=== PATIENT | male | born 1960 | race Caucasian/White ===

== ENCOUNTER 2017-04-11 20:20 | Emergency (ER) | payer SELFPAY ==
--- NOTE | 2017-04-11 20:29 | PDOC ---
History of Present Illness - General History Source: Patient Exam Limitations: No Limitations - History of Present Illness Initial Comments: 04/11/17 20:49 The patient is a 56-year-old male, with a significant past medical history of HTN, testicular cancer, and ITP (last platelet count taken a few months ago and was normal), who presents to the ED with food stuck in his chest. Pt states that he was eating chicken about an hour prior to arrival and it remained stuck in his chest. Pt has had one similar episode in the past and had to be transferred to [facility] to remove the blockage by endoscopy. He states that he believes he has rings and slowed motility. He reports that some secretions can get but when he drinks liquids they just come right up. He has tried vomiting with little relief of his symptoms. The patient denies any shortness of breath or any other symptoms at this time. PAST MEDICAL HISTORY: HTN, testicular cancer, and ITP (last platelet count taken a few months ago and was normal) PAST SURGICAL HISTORY: no significant history FAMILY HISTORY: no pertinent history SOCIAL HISTORY: Pt lives with family and is employed. MEDICATIONS: reviewed ALLERGIES: As per nursing notes General: No fevers or chills, no weakness, no weight loss HEENT: (+)Food stuck in throat. No change in vision. No sore throat,. No ear pain CardioVascular: No chest pain or shortness of breath Respiratory:No cough, or wheezing. Gastrointestinal: (+)vomiting. No nausea, diarrhea or constipation, No rectal bleeding Genitourinary: No dysuria, hematuria, or frequency Musculoskeletal: No joint or muscle pain or swelling Neurologic: No headache, vertigo, dizziness or loss of consciousness Psychiatric: nor depression Skin: No rashes or easy bruising Endocrine: no increased thirst or abnormal weight change Allergic: no skin or latex allergy All other systems reviewed and normal General: Well-nourished well-developed individual, no acute distress HEENT: Throat: Normal, tonsils normal, no erythema or exudate Neck: Supple, no meningeal signs, no lymphadenopathy Eyes::Pupils equal reactive and round, extraocular motion intact Chest: Nontender to palpation Cardiac: S1-S2 normal, regular rate and rhythm, no murmurs rubs or gallops Respiratory: Lungs clear to auscultation bilateral Extremities: Warm, dry, no cyanosis, clubbing, or edema Skin: No rashes Neuro: Alert and oriented x3, nonfocal exam, grossly intact, normal gait Psych: Normal mood and affect <Deepti Arguello - Last Filed: 04/11/17 20:49> - General History Source: Patient Exam Limitations: No Limitations - History of Present Illness Initial Comments: A portion of this note was documented by scribe services under my direction. I have reviewed the details of the note, within reason, and agree with the documentation. The case summary and management plan written by me. Assessment and plan: This is a 56-year-old male who comes in complaining of a food bolus impaction 1 hour prior to arrival. Patient has history of same in the past which required endoscopy for removal. Patient was advised that he would need endoscopy and would be transferred to [facility] where the endoscopy would be performed in the morning. Patient did not want to be in the hospital overnight so was discharged AGAINST MEDICAL ADVICE. Patient understood that by leaving AGAINST MEDICAL ADVICE that he could change his mind at any time and return to [facility] emergency Department. In addition that he understood the risks of leaving AGAINST MEDICAL ADVICE that included but were not limited to aspiration, pneumonia, airway obstruction, significant disability and/or . <Siomara Munoz I - Last Filed: 04/11/17 21:42> - General Chief Complaint: Foreign Body (FB) Stated Complaint: "FOOD STUCK IN MY CHEST AREA" Time Seen by Provider: 04/11/17 20:28 Past History <Deepti Arguello - Last Filed: 04/11/17 20:49> - Past Medical History Anemia: (ITP) Cancer: Yes COPD: No Disorders: Yes (TESTICULAR CA) HTN: Yes (Episodic history. No meds.) Other medical history: ITP - Suicide/Smoking/Psychosocial Hx Smoking Status: No Smoking History: Never smoked Number of Cigarettes Smoked Daily: 0 Hx Alcohol Use: No Drug/Substance Use Hx: No Substance Use Type: None <Siomara Munoz I - Last Filed: 04/11/17 21:42> - Past Medical History Allergies/Adverse Reactions: Allergies Allergy/AdvReac Type Severity Reaction Status Date / Time No Known Allergies Allergy Verified 04/11/17 20:22 Home Medications: Ambulatory Orders NK [No Known Home Medication] 04/11/17 Review of Systems - Review of Systems Able to Perform ROS?: Yes <JosDeepti - Last Filed: 04/11/17 20:49> *Physical Exam - Vital Signs Last Vital Signs Temp Pulse Resp BP Pulse Ox 98.7 F 88 17 140/100 99 04/11/17 20:23 04/11/17 20:23 04/11/17 20:23 04/11/17 20:23 04/11/17 20:23 <Deepti Arguello - Last Filed: 04/11/17 20:49> - Vital Signs Last Vital Signs Temp Pulse Resp BP Pulse Ox 98.7 F 88 17 140/100 99 04/11/17 20:23 04/11/17 20:23 04/11/17 20:23 04/11/17 20:23 04/11/17 20:23 <Siomara Munoz I - Last Filed: 04/11/17 21:42> ED Treatment Course - LABORATORY CBC & Chemistry Diagram: 04/11/17 20:50 04/11/17 20:50 <Siomara Munoz I - Last Filed: 04/11/17 21:42> *DC/Admit/Observation/Transfer - Attestations Scribe Attestion: 04/11/17 20:52 Documentation prepared by Deepti Arguello, acting as medical safety director for Siomara Munoz MD. <Deepti Arguello - Last Filed: 04/11/17 20:49> - Discharge Dispostion Admit: No <Siomara Munoz I - Last Filed: 04/11/17 21:42> Diagnosis at time of Disposition: Food impaction of esophagus Qualifiers: Encounter type: initial encounter Qualified Code(s): T18.128A - Food in esophagus causing other injury, initial encounter - Discharge Dispostion Disposition: AGAINST MEDICAL ADVICE Condition at time of disposition: Fair - Patient Instructions Additional Instructions: You have food stuck in esophagus that most likely will need to be removed by endoscopy. However there is a slim chance that it may pass on its own tonight. You need to be admitted to the hospital for observation in tell the endoscopy can be performed. Your choosing to leave AGAINST MEDICAL ADVICE. By leaving AGAINST MEDICAL ADVICE you except the risk of aspiration, pneumonia, respiratory obstruction, significant disability and/or .
[2017-04-11 20:39] VITALS: BP 140/100; PULSE 88; TEMP 98.7; BMI 26.4
[2017-04-11] MEDS ORDERED: GLUCAGON 1 MG KIT IVPUSH ONE (20:41)
[2017-04-11] MEDS ORDERED: GLUCAGON 1 MG KIT ONE (20:44)
[2017-04-11 21:54] LABS: MCH 29.2 pg (25.7-33.7); MEAN CELL VOLUME 86.1 fl (80-96); MEAN PLT VOLUME 10.2 fl (7.5-11.1); RDW 12.3 % (11.9-15.9); WHITE BLOOD COUNT 13.4 K/mm3 (4.0-10.8)
[2017-04-11 21:56] LABS: ALBUMIN 4.5 g/dl (3.5-5.0); ALK PHOS 70 U/L (32-92); ANION GAP 7 (8-16); BILIRUBIN,TOTAL 0.7 mg/dl (0.2-1.0); CALCIUM 9.2 mg/dl (8.4-10.2); CO2 27 mmol/L (22-28); CREATININE 1.3 mg/dl (0.6-1.3); GLUCOSE,RANDOM 92 mg/dl (74-106); SGOT/AST 28 U/L (10-42); SGPT/ALT 21 U/L (10-40)
[2017-04-11 22:12] LABS: PLATELET COUNT 20 K/MM3 (134-434); REACTIVE LYMPHOCYTES 2 % (0-80)
[2017-04-11 22:13] LABS: PLATELET COMMENTS NO CLUMPING NOTED; PLATELET ESTIMATE DECREASED
--- NOTE | 2017-04-12 14:03 | EKG ---
Test Reason : Blood Pressure : / mmHG Vent. Rate : 086 BPM Atrial Rate : 086 BPM P-R Int : 174 ms QRS Dur : 112 ms QT Int : 386 ms P-R-T Axes : 051 -16 024 degrees QTc Int : 461 ms NORMAL SINUS RHYTHM WITH SINUS ARRHYTHMIA NORMAL ECG WHEN COMPARED WITH ECG OF 17-NOV-2012 17:38, NO SIGNIFICANT CHANGE WAS FOUND Confirmed by DOMITILA EDGAR MD ([id number] on 04/12/2017 2:03:30 PM Referred By: DR DIALLO Confirmed By:DOMITILA EDGAR MD
== END 2017-04-11 21:40 | disposition left against medical advice (07) ==
LOC: FER 20:20
PROC: 3E033GC Introduction of Other Therapeutic Substance into Peripheral Vein, Percutaneous Approach (ICD-10-PCS; principal; 2017-04-11)
DX: T18.128A Food in esophagus causing other injury, initial encounter (principal); I10 Essential (primary) hypertension; Z85.47 Personal history of malignant neoplasm of testis; D69.3 Immune thrombocytopenic purpura
CPT/HCPCS: 36415; 71010-TC; 80053; 85025; 93005; 99282-25